=== PATIENT | male | born 1995 ===

== ENCOUNTER 2017-09-20 09:37 | Emergency (ER) | payer OTHER ==
[2017-09-20 09:47] VITALS: TEMP 95.7
[2017-09-20 09:48] VITALS: BMI 25.1
--- NOTE | 2017-09-20 10:18 | ED PDOC ---
HPI: Abdomen Time Seen by Provider: 09/20/17 09:53 Chief Complaint (Nursing): Abdominal Pain Chief Complaint (Provider): umbilical pain History Per: Patient History/Exam Limitations: no limitations Onset/Duration Of Symptoms: Days (3), Sudden Onset Current Symptoms Are (Timing): Still Present Location Of Pain/Discomfort: Other (umbilical) Quality Of Discomfort: Sharp Associated Symptoms: Diarrhea, Loss Of Appetite. denies: Nausea, Vomiting Exacerbating Factors: Other (lifting) Alleviating Factors: None Last Bowel Movement: Today Additional Complaint(s): 22yo male c/o umbilical pain and swelling, thinks he may have a hernia. 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 Feels a lump at his umbilicus. Denies fever or vomiting but does admit to diarrhea. Past Medical History Reviewed: Historical Data, Nursing Documentation, Vital Signs Vital Signs: Last Vital Signs Temp 95.7 F L 09/20/17 09:46 Pulse 74 09/20/17 13:51 Resp 16 09/20/17 13:51 BP 126/74 09/20/17 13:51 Pulse Ox 100 09/26/17 18:07 - Medical History PMH: No Chronic Diseases - Surgical History Surgical History: No Surg Hx - Family History Family History: States: Unknown Family Hx - Living Arrangements Living Arrangements: With Family - Social History Drugs: Denies - Home Medications Home Medications: Ambulatory Orders Medication Instructions Recorded Naproxen [Naprosyn] 500 mg PO BID PRN #14 tablet 09/20/17 Sulfamethoxazole/Trimethoprim 1 tab PO BID #20 tab 09/23/17 [Bactrim DS 800 mg-160 mg] traMADol [Ultram] 50 mg PO Q8 #10 tab 09/23/17 - Allergies Allergies/Adverse Reactions: Allergies Allergy/AdvReac Type Severity Reaction Status Date / Time No Known Allergies Allergy Verified 09/23/17 08:39 Review of Systems ROS Statement: Except As Marked, All Systems Reviewed And Found Negative Constitutional: Negative for: Fever, Chills ENT: Negative for: Throat Pain Cardiovascular: Negative for: Chest Pain Gastrointestinal: Positive for: Abdominal Pain, Diarrhea. Negative for: Nausea , Vomiting Genitourinary Male: Negative for: Dysuria Musculoskeletal: Negative for: Neck Pain, Shoulder Pain Skin: Negative for: Rash, Lesions Neurological: Negative for: Weakness, Numbness Physical Exam - Reviewed Nursing Documentation Reviewed: Yes Vital Signs Reviewed: Yes - Physical Exam Appears: Positive for: Well, Non-toxic, No Acute Distress Head Exam: Positive for: ATRAUMATIC, NORMAL INSPECTION, NORMOCEPHALIC Skin: Positive for: Normal Color, Warm, DRY ENT: Positive for: Normal ENT Inspection Neck: Positive for: Normal, Painless ROM Cardiovascular/Chest: Positive for: Regular Rate, Rhythm Respiratory: Positive for: Normal Breath Sounds. Negative for: Respiratory Distress Gastrointestinal/Abdominal: Positive for: Bowel Sounds, Soft, Tenderness (+ umbilical mass tender), Guarding (umbilicus) Back: Positive for: Normal Inspection Extremity: Positive for: Normal ROM Neurologic/Psych: Positive for: Alert, Oriented. Negative for: Motor/Sensory Deficits - Laboratory Results Result Diagrams: 09/20/17 10:30 09/20/17 10:30 - ECG O2 Sat by Pulse Oximetry: 100 Medical Decision Making Medical Decision Making: workup initiated for umbilical hernia r/o incarceration labs and CT ordered labs and CT report reviewed, no signs umbilical hernia at this time per radiologist Explained findings to patient, needs followup surgery for elective repair Indications for return to ER also discussed. Work note provided, avoid lifting or straining. Disposition - Clinical Impression Clinical Impression: Umbilical hernia - Patient ED Disposition Is Patient to be Admitted: No Counseled Patient/Family Regarding: Studies Performed, Diagnosis, Need For Followup, Rx Given - Disposition Referrals: [facility] [Outside] Disposition: Routine/Home Disposition Time: 12:45 Condition: STABLE Additional Instructions: See clinic for referral to surgeon and possible definitive treatment/surgery of hernia defect. Avoid straining, heavy lifting or exertion. Return to ER for any worse pain, fever, vomiting or any concern. Prescriptions: Naproxen [Naprosyn] 500 mg PO BID PRN #14 tablet PRN Reason: Pain, Moderate (4-7) Instructions: Umbilical Hernia (ED) Forms: [employer] (Micronesian), [employer] ED School/Work Excuse Print Language: ALBANIAN
[2017-09-20 10:48] LABS: BASO % 0.3 % (0.0-2.0); EOS # 0.1 K/uL (0.0-0.7); EOS % 1.5 % (0.0-4.0); HEMATOCRIT 46.4 % (35.0-51.0); LYMPH # 2.1 K/uL (1.0-4.3); MEAN CELL VOLUME 88.2 fl (80.0-94.0); MEAN CORPUSCULAR HEMOGLOBIN 30.6 pg (27.0-31.0); MEAN CORPUSCULAR HGB CONC 34.7 g/dL (33.0-37.0); MEAN PLATELET VOLUME 10.6 fl (7.2-11.7); MONO # 0.8 K/uL (0.0-0.8); MONO % 8.8 % (0.0-10.0); NEUT # 6.2 K/uL (1.8-7.0); NEUT % 66.4 % (50.0-75.0); NRBC % 0.1 % (0.0-0.0); RED CELL DISTRIBUTION WIDTH 13.2 % (11.5-14.5); WHITE BLOOD COUNT 9.3 K/uL (4.8-10.8)
[2017-09-20 11:09] LABS: ALB/GLOB RATIO 1.4 (1.0-2.1); ALKALINE PHOSPHATASE 83 U/L (38-126); ALT/SGPT 54 U/L (21-72); AST/SGOT 45 U/L (17-59); BILIRUBIN,TOTAL 0.6 mg/dl (0.2-1.3); BLOOD UREA NITROGEN 19 mg/dl (9-20); CARBON DIOXIDE 29 mmol/L (22-30); CHLORIDE 102 mmol/L (98-107); GFR AFRICAN-AMERICAN > 60; GLUCOSE,RANDOM 101 mg/dL (75-110); POTASSIUM 4.1 MMOL/L (3.6-5.0); SODIUM 142 mmol/l (132-148); TOTAL PROTEIN 8.3 G/DL (6.3-8.2)
[2017-09-20] MEDS ORDERED: Sodium Chloride 0.9% 50 ML IV ONE (11:32)
[2017-09-20] MEDS ORDERED: Iohexol 300 100 ML IJ ONE (11:32)
--- NOTE | 2017-09-20 13:28 | CT ---
PROCEDURE: CT Abdomen and Pelvis with contrast HISTORY: umbilical hernia r/o incarceration COMPARISON: None. TECHNIQUE: CT scan of the abdomen and pelvis was performed after intravenous administration of contrast. Oral contrast was not administered. Coronal and sagittal reformatted images were obtained. Contrast dose: 95 mL Omnipaque 300 Radiation dose: Total exam DLP = 439.57 mGy-cm. This CT exam was performed using one or more of the following dose reduction techniques: Automated exposure control, adjustment of the mA and/or kV according to patient size, and/or use of iterative reconstruction technique. FINDINGS: LOWER THORAX: The lung bases are clear. LIVER: There is mild hepatomegaly, diffuse fatty infiltration in the liver and homogeneous enhancement. No gross lesion or ductal dilatation. GALLBLADDER AND BILE DUCTS: The gallbladder is contracted. PANCREAS: Normal in size with homogeneous enhancement. No gross lesion or ductal dilatation. SPLEEN: Normal in size and appearance. ADRENALS: No discrete nodules. KIDNEYS AND URETERS: Both kidneys are normal in size and there is homogeneous enhancement. No hydronephrosis. No solid mass. VASCULATURE: No aortic aneurysm. BOWEL: The small bowel loops are normal in caliber. There is mild colonic diverticulosis without CT evidence for acute diverticulitis. There is no bowel dilatation or obstruction. APPENDIX: Normal appendix. PERITONEUM: No free fluid. No free air. LYMPH NODES: No enlarged lymph nodes. BLADDER: Partially decompressed. REPRODUCTIVE: The prostate gland is normal in size. BONES: No acute fracture. Multilevel Schmorl's nodes in the lower thoracic spine. OTHER FINDINGS: No evidence of umbilical hernia. IMPRESSION: No acute abdominal or pelvic abnormality. No evidence of umbilical hernia. Mild hepatomegaly and hepatic steatosis.
[2017-09-20 13:52] VITALS: BP 126/74; PULSE 74; RESP 16
[2017-09-26 18:07] VITALS: O2SAT 100
== END 2017-09-20 13:55 | disposition home or self-care (01) ==
LOC: H.ER 09:37
DX: K42.9 Umbilical hernia without obstruction or gangrene (principal)
CPT/HCPCS: 74177; 80053; 85025; 99284; J1885; Q9967

== ENCOUNTER 2017-09-23 08:24 | Emergency (ER) | payer OTHER ==
[2017-09-23 08:28] VITALS: BP 140/69; PULSE 74; TEMP 97; O2SAT 99
--- NOTE | 2017-09-23 08:44 | ED PDOC ---
HPI: Abdomen Time Seen by Provider: 09/23/17 08:26 Chief Complaint (Nursing): Abdominal Pain Chief Complaint (Provider): Umbilical pain History Per: Patient History/Exam Limitations: no limitations Onset/Duration Of Symptoms: Hrs Outside of [place] travel?: No Current Symptoms Are (Timing): Still Present Location Of Pain/Discomfort: Periumbilical Associated Symptoms: denies: Fever, Nausea, Vomiting Additional Complaint(s): 22yo male, presents to ED with complaints of pinkish discharge from his umbilical area associated with pain, present since this morning. Patient denies any fever, nausea or vomiting. Of note, patient was seen in this facility on with umbilical pain and had a workup for a possible umbilical hernia, which was negative. Patient with no other medical complaints. Past Medical History Reviewed: Historical Data, Nursing Documentation, Vital Signs Vital Signs: Last Vital Signs Temp 97 F L 09/23/17 08:27 Pulse 74 09/23/17 08:27 Resp BP 140/69 09/23/17 08:27 Pulse Ox 99 09/23/17 08:46 - Medical History PMH: No Chronic Diseases - Surgical History Surgical History: No Surg Hx - Family History Family History: States: No Known Family Hx - Home Medications Home Medications: Ambulatory Orders Medication Instructions Recorded Naproxen [Naprosyn] 500 mg PO BID PRN #14 tablet 09/20/17 Sulfamethoxazole/Trimethoprim 1 tab PO BID #20 tab 09/23/17 [Bactrim DS 800 mg-160 mg] traMADol [Ultram] 50 mg PO Q8 #10 tab 09/23/17 - Allergies Allergies/Adverse Reactions: Allergies Allergy/AdvReac Type Severity Reaction Status Date / Time No Known Allergies Allergy Verified 09/23/17 08:39 Review of Systems ROS Statement: Except As Marked, All Systems Reviewed And Found Negative Constitutional: Negative for: Fever Gastrointestinal: Positive for: Abdominal Pain (umbilical area w/ pinkish discharge). Negative for: Nausea, Vomiting Physical Exam - Reviewed Nursing Documentation Reviewed: Yes Vital Signs Reviewed: Yes - Physical Exam Appears: Positive for: Non-toxic, No Acute Distress Skin: Positive for: Normal Color Eye Exam: Positive for: Normal appearance Neck: Positive for: Supple Cardiovascular/Chest: Positive for: Regular Rate, Rhythm Respiratory: Negative for: Respiratory Distress Gastrointestinal/Abdominal: Positive for: Normal Exam, Soft, Other (no drainage or discharge noted from umbilical region). Negative for: Tenderness, Hernia Neurologic/Psych: Positive for: Alert, Oriented. Negative for: Motor/Sensory Deficits - ECG O2 Sat by Pulse Oximetry: 99 (RA) Pulse Ox Interpretation: Normal Medical Decision Making Medical Decision Making: Time: 839 Impression: Abdominal pain Plan: Patient to be treated for possible cellulitis or omphalitis. Patient informed to take medications as prescribed and follow up with PCP in 1-2 days. Scribe Attestation: Documented by Mery Kuhn acting as a scribe for Giovanny Zuluaga MD. Provider Attestation: All medical record entries made by the Scribe were at my direction and personally dictated by me. I have reviewed the chart and agree that the record accurately reflects my personal performance of the history, physical exam, medical decision making, and the department course for this patient. I have also personally directed, reviewed, and agree with the discharge instructions and disposition. Disposition - Clinical Impression Clinical Impression: Omphalitis - Disposition Referrals: [facility] [Outside] Disposition: Routine/Home Disposition Time: 08:40 Condition: STABLE Prescriptions: Sulfamethoxazole/Trimethoprim [Bactrim DS 800 mg-160 mg] 1 tab PO BID #20 tab traMADol [Ultram] 50 mg PO Q8 #10 tab Instructions: Cellulitis (ED) Forms: [employer] (Citizen Of [place])
== END 2017-09-23 08:56 | disposition home or self-care (01) ==
LOC: H.ER 08:24
DX: L08.82 Omphalitis not of newborn (principal)

== ENCOUNTER 2018-02-06 17:55 | Emergency (ER) | payer OTHER ==
[2018-02-06 18:03] VITALS: BP 135/91; PULSE 96; RESP 16; TEMP 98; O2SAT 99
--- NOTE | 2018-02-06 18:08 | ED PDOC ---
Lower Extremity Pain/Injury Time Seen by Provider: 02/06/18 18:08 Chief Complaint (Nursing): Lower Extremity Problem/Injury Chief Complaint (Provider): foot pain History Per: Patient Additional Complaint(s): 22-year-old male with no past medical history presents to emergency Department with pain to right foot status post stepping on a nail 2 days ago at work. Patient states the nail punctured his foot through his boot. He did not seek medical attention at that time but presents today with pain to right foot. Patient also states he needs tetanus shot. Patient able to walk and bear weight but has pain when doing so. PMD: none Past Medical History Reviewed: Historical Data, Nursing Documentation, Vital Signs Vital Signs: Last Vital Signs Temp 98.0 F 02/06/18 17:56 Pulse 96 H 02/06/18 17:56 Resp 16 02/06/18 17:56 BP 135/91 H 02/06/18 17:56 Pulse Ox 99 02/06/18 17:56 - Medical History PMH: No Chronic Diseases - Surgical History Surgical History: No Surg Hx - Family History Family History: States: No Known Family Hx - Living Arrangements Living Arrangements: With Family - Social History Current smoker - smoking cessation education provided: No Alcohol: None Drugs: Cannabis - Immunization History Hx Tetanus Toxoid Vaccination: No (not sure) - Home Medications Home Medications: Ambulatory Orders Medication Instructions Recorded Naproxen [Naprosyn] 500 mg PO BID PRN #14 tablet 09/20/17 Sulfamethoxazole/Trimethoprim 1 tab PO BID #20 tab 09/23/17 [Bactrim DS 800 mg-160 mg] traMADol [Ultram] 50 mg PO Q8 #10 tab 09/23/17 Ibuprofen [Motrin Tab] 800 mg PO Q8 PRN #20 tab 02/06/18 - Allergies Allergies/Adverse Reactions: Allergies Allergy/AdvReac Type Severity Reaction Status Date / Time No Known Allergies Allergy Verified 09/23/17 08:39 Wells Criteria for PE - Wells Criteria for Pulmonary Embolism Clinical Signs and Symptoms of DVT: No P.E is #1 Diagnosis, or Equally Likely: No Heart Rate >100: No Immobilization at least 3 days;Surgery previous 4 weeks: No Previous, objectively diagnosed PE or DVT: No Hemoptysis: No Malignancy w/treatment within 6 months, or palliative: No Total Score: 0 Review of Systems ROS Statement: Except As Marked, All Systems Reviewed And Found Negative Musculoskeletal: Positive for: Foot Pain (right foot pain) Physical Exam - Reviewed Nursing Documentation Reviewed: Yes Vital Signs Reviewed: Yes - Physical Exam Appears: Positive for: Well, Non-toxic, No Acute Distress Skin: Negative for: Rash Eye Exam: Positive for: Normal appearance Cardiovascular/Chest: Positive for: Regular Rate, Rhythm Respiratory: Positive for: Normal Breath Sounds Extremity: Positive for: Other (Mild tenderness plantar aspect of right foot with no acute infection noted, no open wounds, no active bleeding or drainage) Neurologic/Psych: Positive for: Alert, Oriented - ECG O2 Sat by Pulse Oximetry: 99 Pulse Ox Interpretation: Normal - Other Rad right foot x-ray X-Ray: Interpreted by Me, Viewed By Me X-Ray Interpretation: no fx, no dis, no radiopaque FB Medical Decision Making Medical Decision Makin22 year old with right foot pain Plan: X-ray right foot PO motrin and tylenol Tetanus booster Patient is aware of x-ray results, all questions answered. Prescription for Motrin given for pain control. Patient was referred to podiatry clinic for follow up. Disposition - Clinical Impression Clinical Impression: Puncture wound of foot, Requires a booster tetanus - Patient ED Disposition Is Patient to be Admitted: No Counseled Patient/Family Regarding: Studies Performed, Diagnosis, Need For Followup, Rx Given - Disposition Referrals: Podiatry Clinic [Outside] Disposition: Routine/Home Disposition Time: 18:57 Condition: STABLE Additional Instructions: Take rx meds as directed as needed for pain. Follow up with podiatry clinic for any persistent symptoms Prescriptions: Ibuprofen [Motrin Tab] 800 mg PO Q8 PRN #20 tab PRN Reason: Pain, Moderate (4-7) Instructions: Wound Care (DC), Diphtheria and Tetanus Toxoids, and Acellular Pertussis Vaccine Forms: [employer] (Lao), [facility] ED School/Work Excuse
[2018-02-06] MEDS ORDERED: Tdap Vaccine 0.5 ml Vial (10-64 yrs) IM ONE ×2 (18:16→18:54)
--- NOTE | 2018-02-07 11:12 | RAD ---
PROCEDURE: Right Foot Radiographs. HISTORY: Trauma COMPARISON: None. FINDINGS: BONES: Bone alignment and mineralization are normal. There is no acute displaced fracture or bone destruction. JOINTS: Normal. SOFT TISSUES: Normal. OTHER FINDINGS: None. IMPRESSION: No acute fracture or dislocation.
== END 2018-02-06 20:01 | disposition home or self-care (01) ==
LOC: H.ER 17:55
DX: S91.331A Puncture wound without foreign body, right foot, initial encounter (principal); W26.8XXA Contact with other sharp object(s), not elsewhere classified, initial encounter; Y99.0 Civilian activity done for income or pay